=== PATIENT | female | born 1990 | race American Indian/Alaskan Native ===

== ENCOUNTER 2016-12-09 21:24 | Emergency (ER) | payer MEDICAID ==
[2016-12-09 23:01] LABS: Basophils % (Auto) 0.5 % (0.0-1.8); Eosinophils % (Auto) 0.5 % (0.0-4.3); Hematocrit 34.9 % (30.3-42.9); Hemoglobin 11.4 gm/dl (10.1-14.3); Mean Corpuscular HGB Conc 33 % (30-34); Mean Corpuscular Hemoglobin 29 pg (28-32); Mean Corpuscular Volume 89 fl (79-97); Platelet Count 238 K/mm3 (140-440); Red Blood Count 3.94 M/mm3 (3.65-5.03); Red Cell Distribution Width 15.7 % (13.2-15.2); White Blood Count 6.7 K/mm3 (4.5-11.0)
[2016-12-10 02:23] LABS: Bacteria,Urine 1+ /HPF (Negative); Bilirubin,Urine NEG (Negative); Blood,Urine NEG (Negative); Ketones,Urine 20 mg/dL (Negative); Leukocyte Esterase,Urine LG (Negative); Mucus,Urine 3+ /HPF; Nitrite,Urine NEG (Negative); Urobilinogen,Urine < 2.0 mg/dL (<2.0)
[2016-12-10] MEDS ORDERED: ZOFRAN ODT PO ONE (08:04)
[2016-12-10] MEDS ORDERED: NORCO 5/325 PO ONE (08:04)
--- NOTE | 2016-12-10 08:13 | Emergency Department Report ---
ED Female HPI - General Chief complaint: Vaginal Bleeding Stated complaint: VAG BLEED,PREG UNK WKS Time Seen by Provider: 12/10/16 07:59 Source: patient, RN notes reviewed Mode of arrival: Ambulatory Limitations: No Limitations - History of Present Illness Initial comments: 46-year-old female presents to the emergency department complaining of vaginal bleeding and lower abdominal pain. Patient states she began bleeding 4 days ago. She was seen in the emergency department at [facility]. She states that she was told she was and had an ultrasound. However, the patient did not get results of this ultrasound. She states that the bleeding improved over the next day, but the bleeding has returned. Patient reports intermittent vaginal bleeding. Sometimes the bleeding is heavy, sometimes it is manager r d. Patient describes sharp pain in her lower abdomen that does not radiate. She is also complaining of nausea and vomiting. There are no other complaints. MD Complaint: vaginal bleeding -: Gradual, days(s) (4) Location: suprapubic Radiation: non-radiating Severity: moderate Severity scale (0 -10): 6 Quality: sharp Consistency: intermittent Improves with: none Worsens with: none Are you Now?: Yes Associated Symptoms: nausea/vomiting - Related Data Sexually active: Yes : 2 Para: 2 Previous Rx's Medication Instructions Recorded Last Taken Type HYDROcodone/APAP 5-325 [[place] 1 each PO Q6HR PRN #14 tablet 12/10/16 Unknown Rx 5/325] Allergies Allergy/AdvReac Type Severity Reaction Status Date / Time No Known Allergies Allergy Verified 03/27/15 21:34 ED Review of Systems ROS: Stated complaint: VAG BLEED,PREG UNK WKS Other details as noted in HPI Comment: All other systems reviewed and negative Gastrointestinal: abdominal pain, nausea, vomiting Genitourinary: as per HPI, abnormal menses ED Past Medical Hx - Past Medical History Previous Medical History?: Yes Hx Hypertension: Yes (PIH) Hx Heart Attack/AMI: No Hx Congestive Heart Failure: No Hx Diabetes: No Hx Deep Vein Thrombosis: No Hx Pulmonary Embolism: No Hx Liver Disease: No Hx Renal Disease: No Hx Sickle Cell Disease: No Hx Arthritis: No Hx Seizures: No Hx Kidney Stones: No Hx Asthma: Yes (LAST ATTACK 1 WEEK AGO) Hx COPD: No Hx Dementia: No Hx HIV: No - Surgical History Past Surgical History?: Yes Hx Coronary Stent: No Hx Pacemaker: No Hx Internal Defibrillator: No Additional Surgical History: tonsilectomy - Family History Family history: no significant - Social History Smoking Status: Never Smoker Substance Use Type: None - Medications Home Medications: Home Medications Medication Instructions Recorded Confirmed Last Taken Type HYDROcodone/APAP 5-325 [[place] 1 each PO Q6HR PRN #14 tablet 12/10/16 Unknown Rx 5/325] ED Physical Exam - General Limitations: No Limitations General appearance: alert, in no apparent distress - Head Head exam: Present: atraumatic, normocephalic - Eye Eye exam: Present: normal appearance, PERRL, EOMI - ENT ENT exam: Present: normal exam, normal orophraynx, mucous membranes moist - Neck Neck exam: Present: normal inspection, full ROM. Absent: tenderness - Respiratory Respiratory exam: Present: normal lung sounds bilaterally. Absent: respiratory distress - Cardiovascular Cardiovascular Exam: Present: regular rate, normal rhythm, normal heart sounds - GI/Abdominal GI/Abdominal exam: Present: soft, tenderness (mild suprapubic tenderness to palpation), normal bowel sounds. Absent: distended, guarding, rebound - Extremities Exam Extremities exam: Present: normal inspection, full ROM. Absent: tenderness - Back Exam Back exam: Present: normal inspection, full ROM. Absent: tenderness - Neurological Exam Neurological exam: Present: alert, oriented X3. Absent: motor sensory deficit - Skin Skin exam: Present: warm, dry, intact ED Course Vital Signs 12/09/16 12/10/16 22:17 02:01 Temperature 98.4 F 97.6 F Pulse Rate 90 74 Respiratory 18 18 Rate Blood Pressure 122/75 124/81 O2 Sat by Pulse 100 100 Oximetry ED Medical Decision Making - Lab Data Result diagrams: 12/09/16 22:28 - Radiology Data Radiology results: report reviewed Pelvic ultrasound was discussed with the radiologist. Ultrasound reveals no evidence of . Ultrasound is read as normal. - Medical Decision Making Lab and imaging results reviewed and discussed with the patient. Patient reports feeling better with medication. Patient will be discharged home at this time to follow up with her PRIMER CHARGER. Patient will need repeat beta hCG testing within one week. - Differential Diagnosis ectopic , threatened , spontaneous Critical care attestation.: If time is entered above; I have spent that time in minutes in the direct care of this critically ill patient, excluding procedure time. ED Disposition Clinical Impression: Threatened miscarriage Disposition: DISCHARGED TO HOME OR SELFCARE Is pt being admited?: No Condition: Stable Instructions: Threatened Miscarriage (ED) Additional Instructions: Your beta hCG today was 44. Your ultrasound was read by the radiologist as normal. You need to follow up with your PRIMER CHARGER in the next week to have your blood work retested. If symptoms worsen, or if new symptoms develop, return to the emergency department. Prescriptions: HYDROcodone/APAP 5-325 [[place] 5/325] 1 each PO Q6HR PRN #14 tablet PRN Reason: Pain Referrals: PRIMARY CARE, [Primary Care Provider] - 3-5 Days Time of Disposition: 09:20
--- NOTE | 2016-12-10 09:08 | Ultrasound Report ---
ULTRASOUND OB LESS THAN 14 WEEKS - TRANSABDOMINAL AND TRANSVAGINAL INDICATION: Lower abdominal pain with moderate vaginal bleeding. Serum beta-hCG of 44.6 units. COMPARISON: None similar during this gestation. FINDINGS: Transabdominal and transvaginal pelvic sonography performed in this patient with LMP of 11/29/2016 and estimated menstrual age of 1 week and 4 days and EDC of 09/05/2017. An anteverted uterus measuring approximately 9 x 4.1 x 6 cm demonstrates endometrial thickness of approximately 0.9 cm towards the fundus, endovaginal image 8. Minimal pelvic free fluid. Right ovary is 3.6 x 2.4 x 2.5 cm while the left ovary is 2.7 x 1.6 x 2.2 cm. Small bilateral follicular cysts, largest approximately 1.6 cm on the right. CONCLUSION: 1. No sonographic evidence of a viable intrauterine gestation at this time, as described. 2. Both ovaries identified, as above. Please also correlate clinically for accuracy of the LMP and with followup serum beta-hCG values, as warranted. Thank you for the opportunity to participate in this patient's care.
[2016-12-10 09:35] VITALS: BP 120/81
== END 2016-12-10 09:30 | disposition home or self-care (01) ==
LOC: ED 21:24
DX: O20.0 Threatened abortion (principal); O16.9 Unspecified maternal hypertension, unspecified trimester; O99.519 Diseases of the respiratory system complicating pregnancy, unspecified trimester; Z3A.00 Weeks of gestation of pregnancy not specified; Z90.89 Acquired absence of other organs
CPT/HCPCS: 36415; 76801; 76817; 81001; 84702; 85025; 86850; 86900; 86901; Q0162

== ENCOUNTER 2017-07-15 13:50 | Observation (INO) | payer MEDICAID ==
[2017-07-15] MEDS ORDERED: LACTATED RINGERS 1,000 ML ONE ×2 (15:17→19:58)
[2017-07-15] MEDS ORDERED: PEPCID IV ONE (15:18)
[2017-07-15] MEDS ORDERED: SUBLIMAZE ONE (15:21)
[2017-07-15] MEDS ORDERED: DIPRIVAN 10 MG/ML IV ONE (15:21)
--- NOTE | 2017-07-15 15:26 | Anesthesia Consultation ---
Anesthesia Consult and Med Hx Date of service: 07/15/17 - Airway Anesthetic Teeth Evaluation: Good ROM Head & Neck: Adequate Mental/Hyoid Distance: Adequate Mallampati Class: Class II Intubation Access Assessment: Good - Pulmonary Exam CTA: Yes - Cardiac Exam Cardiac Exam: No Murmur - Pre-Operative Health Status ASA Pre-Surgery Classification: ASA1 Proposed Anesthetic Plan: General - Pulmonary Hx Smoking: No Hx Asthma: Yes COPD: No Hx Pneumonia: No Hx Sleep Apnea: No - Cardiovascular System Hx Hypertension: Yes (PIH) Hx Coronary Artery Disease: No Hx Heart Attack/AMI: No Hx Angina: No Hx Percutaneous Transluminal Coronary Angioplasty (PTCA): No Hx Pacemaker: No Hx Internal Defibrillator: No Hx Valvular Heart Disease: No Hx Heart Murmur: Yes Hx Peripheral Vascular Disease: No - Central Nervous System Hx Seizures: No CVA: No Hx Psychiatric Problems: No - Gastrointestinal Hx Ulcer: No Hx Gastroesophageal Reflux Disease: Yes - Endocrine Hx Renal Disease: No Hx End Stage Renal Disease: No Hx Cirrhosis: No Hx Liver Disease: No Hx Hypothyroidism: No Hx Hyperthyroidism: No - Hematic Hx Anemia: Yes Hx Sickle Cell Disease: No - Other Systems Hx Alcohol Use: No Hx Cancer: No
--- NOTE | 2017-07-15 15:27 | Anesthesia Day of Surgery ---
Anesthesia Day of Surgery - Day of Surgery Patient Examined: Yes Patient H&P Reviewed: Yes Patient is NPO: Yes
--- NOTE | 2017-07-15 15:28 | History and Physical Report ---
History of Present Illness Date of examination: 07/15/17 Date of admission: 07/15/17 Chief complaint: missed History of present illness: This is a 26 yo at 12 weeks came into to clinic for nob and noted to have bleeding. She had an US showing a missed . She was counseled and desired to have a d and c and declined alternative options which include meds vs conservative. 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 denies: smoking, alcohol abuse, prescription drug abuse, IV drug use - Obstetrical History : 1 Medications and Allergies Allergies Allergy/AdvReac Type Severity Reaction Status Date / Time No Known Allergies Allergy Verified 03/27/15 21:34 Home Medications Medication Instructions Recorded Confirmed Last Taken Type No Known Home Medications [No 07/15/17 07/15/17 Unknown History Reported Home Medications] Active Meds: Active Medications Famotidine (Pepcid) 20 mg IV PREOP NR Stop: 07/15/17 23:59 Lactated Ringer's (Lactated Ringers) 1,000 mls @ 100 mls/hr IV DIRECT FERNANDA Stop: 07/15/17 23:59 Midazolam HCl (Versed) 2 mg IV PREOP NR Stop: 07/15/17 23:59 Review of Systems Genitourinary: vaginal bleeding - Vital Signs Vital signs: Vital Signs Temp Pulse Resp BP Pulse Ox 98.3 F 89 18 117/56 100 07/15/17 15:00 07/15/17 15:00 07/15/17 15:00 07/15/17 15:00 07/15/17 15:00 Temp Pulse Resp BP Pulse Ox 98.3 F 89 18 117/56 100 07/15/17 15:00 07/15/17 15:00 07/15/17 15:00 07/15/17 15:00 07/15/17 15:00 - Physical Exam Breasts: Positive: normal Cardiovascular: Regular rate, Normal S1 Lungs: Positive: Clear to auscultation, Normal air movement Abdomen: Positive: normal appearance, soft, normal bowel sounds. Negative: distention, tenderness Genitourinary (Female): Positive: normal external genitalia, normal perenium Vulva: both: normal Vagina: Positive: normal moisture Cervix: Negative: lesion Uterus: Positive: normal size, normal contour Anus/Rectum: Positive: normal perianal skin Extremities: Positive: normal Deep Tendon Reflex Grade: Normal +2 Results All other labs normal. Assessment and Plan A/P missed 9 weeks IUP consent signed discused all options desires to proceed with d and c ivf and labs sent
[2017-07-15] MEDS ORDERED: PEPCID IV NR (15:30)
[2017-07-15] MEDS ORDERED: VERSED IV NR (15:30)
[2017-07-15] MEDS ORDERED: LACTATED RINGERS 1,000 ML IV SCH ×2 (15:30→19:00)
[2017-07-15] MEDS ORDERED: SILVER NITRATE TP ONE ×3 (15:36→16:09)
[2017-07-15] MEDS ORDERED: NACL 0.9% IR ONE (15:36)
[2017-07-15] MEDS ORDERED: XYLOCAINE MPF 2% ONE (15:42)
[2017-07-15 15:43] LABS: Basophils % (Auto) 0.4 % (0.0-1.8); Eosinophils % (Auto) 0.7 % (0.0-4.3); Hematocrit 36.7 % (30.3-42.9); Hemoglobin 11.9 gm/dl (10.1-14.3); Mean Corpuscular HGB Conc 33 % (30-34); Mean Corpuscular Hemoglobin 29 pg (28-32); Mean Corpuscular Volume 90 fl (79-97); Platelet Count 234 K/mm3 (140-440); Red Blood Count 4.07 M/mm3 (3.65-5.03); Red Cell Distribution Width 14.3 % (13.2-15.2); White Blood Count 5.9 K/mm3 (4.5-11.0)
[2017-07-15] MEDS ORDERED: DECADRON ONE (15:55)
[2017-07-15] MEDS ORDERED: ZOFRAN ONE (15:55)
[2017-07-15] MEDS ORDERED: NEO SYNEPHRINE/NS Syringe(OR USE) IV ONE (16:00)
--- NOTE | 2017-07-15 16:21 | Operative Report ---
Operative Report Operative Report: POSTOPERATIVE DIAGNOSIS: Missed . PROCEDURE PERFORMED: Suction, dilation, and curettage. ANESTHESIA: Spinal. ESTIMATED BLOOD LOSS: 300 mL. COMPLICATIONS: None. FINDINGS: Products of conception consistent with a 6-week intrauterine . INDICATIONS: The patient is a 26-year-old 3 , para 0112 female at 12 weeks by her last menstrual period and 9 weeks by an ultrasound today in the clinic who presents with heavy bleeding starting today. Additionally, the cervix was noted to be 1 cm dilated. These findings were discussed with the patient and options including surgical management via dilation and curettage versus management with misoprostol versus expected management were discussed with the patient. After discussion of these options, the patient opted for a suction, dilation, and curettage. The patient was described to the patient in detail including risks of infection, bleeding, injury to surrounding organs including risk of perforation. Informed consent was obtained prior to proceeding with the procedure. PROCEDURE NOTE: The patient was taken to the operating room where spinal anesthesia was administered without difficulty. The patient was prepped and draped in usual sterile fashion in lithotomy position. A weighted speculum was placed. The anterior lip of the cervix was grasped with a single tooth tenaculum. At this time, a 8-mm suction curettage was advanced into the uterine cavity without difficulty and was used to suction contents of the uterus. Following removal of the products of conception, a sharp curette was advanced into the uterine cavity and was used to scrape the four mays of the uterus until a gritty texture was noted. At this time, the suction curette was advanced one additional time to suction any remaining products. All instruments were removed. Hemostasis was visualized. The patient was stable
--- NOTE | 2017-07-15 16:23 | Discharge Summary ---
<MALIK SUAZO - Last Filed: 07/15/17 16:44> Providers - Providers Date of Admission: 07/15/17 Date of discharge: 07/15/17 Attending physician: MALIK SUAZO MD Primary care physician: HOIST OPERATOR Hospitalization Reason for admission: other (missed ) Procedure: other (dilatation and currettage) Condition at discharge: Stable Disposition: DC-01 TO HOME OR SELFCARE Plan - Discharge Medications Prescriptions: Ibuprofen [Motrin] 600 mg PO Q8H PRN #30 tablet PRN Reason: Pain oxyCODONE /ACETAMINOPHEN [Percocet 5/325] 1 tab PO Q6HR PRN #30 tablet PRN Reason: Pain - Provider Discharge Summary Activity: routine, no sex for 6 weeks, no strenuous exercise Diet: routine Instructions: routine Additional instructions: [] Smoking cessation referral if applicable(refer to patient education folder for contact #) [] Refer to [facility] Booklet Call your doctor immediately for: * Fever > 100.5 * Heavy vaginal bleeding ( >1 pad per hour) * Severe persistent headache * Shortness of breath * Reddened, hot, painful area to leg or breast * Drainage or odor from incision. * Keep incision clean and dry at all times and follow doctor's instructions regarding bathing/showering - Follow up plan Follow up: PRIMARY CARE, [Primary Care Provider] - 14 Days Forms: [facility] Discharge Summary, Outpatient Surgery DC Inst. <PHUCVIRGENN - Last Filed: 07/18/17 12:10> Providers - Providers Date of Admission: 07/15/17 18:19 Date of discharge: 07/16/17 Attending physician: MALIK SUAZO MD 07/15/17 18:18 Consult to Physician [CONS] Routine Consulting Provider: ALEXI SAUER Reason For Exam: seizure activity after surgery Place consult to:: Neurology Notified:: yes Phone number called:: [phone] Was contact made?: No If yes, spoke with:: service Time called:: 05:00 Comment:: dr. zheng notified Primary care physician: HOIST OPERATOR Hospitalization Procedure details: suction D&C complications: none Discharge diagnosis: other Hospital course: Pt was admitted for suction dilation and curettage after diagnosis of missed at 9 wks. She tolerated the procedure well, then showed evidence of seizure activity in the PACU. She was then admitted overnight for observation and had a Neurology consult with EEG. She was discharged on POD#1 on Motrin, Perocet and Keppra 500 mg BID. She will follow up in two weeks with Dr Suazo. - Discharge Diagnoses (1) Missed Status: Acute (2) Seizure Status: Acute Plan - Provider Discharge Summary Activity: routine, no sex for 6 weeks, no strenuous exercise Diet: routine Instructions: routine Additional instructions: [] Smoking cessation referral if applicable(refer to patient education folder for contact #) [] Refer to [facility] Booklet Call your doctor immediately for: * Fever > 100.5 * Heavy vaginal bleeding ( >1 pad per hour) * Severe persistent headache * Shortness of breath * Reddened, hot, painful area to leg or breast * Drainage or odor from incision. * Keep incision clean and dry at all times and follow doctor's instructions regarding bathing/showering
[2017-07-15] MEDS ORDERED: TORADOL IV PRN (16:37)
[2017-07-15] MEDS ORDERED: PERCOCET 5/325 PO PRN (16:37)
--- NOTE | 2017-07-15 17:06 | Post Anesthesia Evaluation ---
- Post Anesthesia Evaluation Patient Participated: Yes Airway Patent: Yes Stable Respiratory Function: Yes Nausea/Vomiting: No Temp > 96.8F: Yes Pain Manageable: Yes Adequeate Hydration: Yes Anesthesia Complications: No
[2017-07-15] MEDS ORDERED: VERSED IV ONE (17:27)
[2017-07-15] MEDS ORDERED: MYLICON PO PRN (18:18)
[2017-07-15] MEDS ORDERED: SENOKOT S PO PRN (18:18)
[2017-07-15] MEDS ORDERED: AMBIEN PO PRN (18:18)
[2017-07-15] MEDS ORDERED: TYLENOL PO PRN (18:18)
[2017-07-15] MEDS ORDERED: ZOFRAN IV PRN (18:18)
[2017-07-15] MEDS ORDERED: MILK OF MAGNESIA PO PRN (18:18)
[2017-07-15] MEDS ORDERED: ALUM-MAG HYDROX-SIMETH 200-200-20MG/5ML PO PRN (18:18)
[2017-07-15] MEDS ORDERED: BENADRYL PO PRN (18:18)
[2017-07-15] MEDS ORDERED: COLACE PO PRN (18:18)
[2017-07-15 19:52] LABS: Alanine Aminotransferase 13 units/L (7-56); Albumin 3.8 g/dL (3.9-5); Albumin/Globulin Ratio 1.5 %; Alkaline Phosphatase 45 units/L (35-129); Anion Gap 18 mmol/L; BUN/Creatinine Ratio 10; Blood Urea Nitrogen 7 mg/dL (7-17); Calcium 8.9 mg/dL (8.4-10.2); Carbon Dioxide 23 mmol/L (22-30); Chloride 101.4 mmol/L (98-107); Glucose 97 mg/dL (65-100); Potassium 4.9 mmol/L (3.6-5.0); Sodium 137 mmol/L (137-145); Total Protein 6.4 g/dL (6.3-8.2)
[2017-07-15 20:01] LABS: Bacteria,Urine 1+ /HPF (Negative); Bilirubin,Urine NEG (Negative); Blood,Urine LG (Negative); Ketones,Urine 20 mg/dL (Negative); Leukocyte Esterase,Urine LG (Negative); Nitrite,Urine NEG (Negative); Protein,Urine <15 mg/dL mg/dL (Negative); Urobilinogen,Urine < 2.0 mg/dL (<2.0)
[2017-07-15] MEDS: MOTRIN PO PRN (20:57)
[2017-07-15] MEDS: PERCOCET 5/325 PO PRN (20:58)
--- NOTE | 2017-07-15 23:35 | Consultation ---
History of Present Illness - Reason for Consult Consult date: 07/15/17 seizures - History of Present Illness patient is 26-year-old with history of asthma. Patient had missed and had D and C done today. While in the recovery room she had seizures. The hospitalist has been consulted for further evaluation. Patient stated this is her first time having seizures. She denies any chest pain or shortness of breath. She does mention positive family history of seizure disorder. Her mother has seizure disorder and also patient's 2-year-old son was just diagnosed with seizure disorder. Currently she is asymptomatic. Past History Past Medical History: other (asthma) Past Surgical History: Other (D and C) Social history: no significant social history, single. denies: smoking, alcohol abuse, prescription drug abuse, IV drug use Family history: other (Mother has seizure disorder) Medications and Allergies Allergies Allergy/AdvReac Type Severity Reaction Status Date / Time No Known Allergies Allergy Verified 03/27/15 21:34 Home Medications Medication Instructions Recorded Confirmed Last Taken Type Ibuprofen [Motrin] 600 mg PO Q8H PRN #30 tablet 07/15/17 Unknown Rx oxyCODONE /ACETAMINOPHEN [Percocet 1 tab PO Q6HR PRN #30 tablet 07/15/17 Unknown Rx 5/325] Active Meds: Active Medications Acetaminophen (Tylenol) 650 mg PO Q4H PRN PRN Reason: Pain MILD(1-3)/Fever >100.5/VIVAR Al Hydrox/Mg Hydrox/Simethicone (Alum-Mag Hydrox-Simeth [id number]/5ml) 30 ml PO Q6H PRN PRN Reason: Indigestion Diphenhydramine HCl (Benadryl) 25 mg PO Q6H PRN PRN Reason: Itching Docusate Sodium (Colace) 100 mg PO Q12H PRN PRN Reason: Constipation Lactated Ringer's (Lactated Ringers) 1,000 mls @ 125 mls/hr IV DIRECT FERNANDA Last Admin: 07/15/17 20:59 Dose: 125 mls/hr Ibuprofen (Motrin) 600 mg PO Q6H PRN PRN Reason: Pain, Mild (1-3) Last Admin: 07/15/17 20:57 Dose: 600 mg Magnesium Hydroxide (Milk Of Magnesia) 30 ml PO QHS PRN PRN Reason: Laxative Effect Ondansetron HCl (Zofran) 4 mg IV Q6H PRN PRN Reason: Nausea And Vomiting Oxycodone/Acetaminophen (Percocet 5/325) 1 tab PO ONCE PRN PRN Reason: Pain, Moderate (4-6) Oxycodone/Acetaminophen (Percocet 5/325) 2 tab PO Q4H PRN PRN Reason: Pain, Moderate (4-6) Last Admin: 07/15/17 20:58 Dose: 2 tab Senna/Docusate Sodium (Senokot S) 2 tab PO Q12H PRN PRN Reason: Laxative Effect Simethicone (Mylicon) 80 mg PO Q6H PRN PRN Reason: Gas pain Zolpidem Tartrate (Ambien) 10 mg PO ONCE PRN PRN Reason: Sleep Last Admin: 07/15/17 22:48 Dose: 10 mg Review of Systems All systems: negative (no fever, no headache, no chest pain, no shortness of breath. All other systems reviewed and are negative) Exam - Physical Exam Narrative exam: GEN APPEARANCE : Not in acute distress, lying in bed HEENT: Normocephalic, Atraumatic NECK : supple, no JVD LUNGS: clear to auscultation bilaterally, no rales, no wheeze HEART: S1 and S2 regular, no murmurs, rubs or gallop, ABD: Soft, non tender, non distended, normal bowel sounds EXT: No edema, no clubbing, no cyanosis NEURO: Awake,alert, oriented x 3,moves all extremities Psych:Normal mood - Constitutional Vitals: Temp Pulse Resp BP Pulse Ox 99.2 F 89 20 110/75 99 07/15/17 20:15 07/15/17 20:15 07/15/17 20:15 07/15/17 20:15 07/15/17 20:00 Results - Labs CBC & Chem 7: 07/15/17 14:40 07/15/17 19:26 Labs: Abnormal lab results 07/15/17 07/15/17 07/15/17 Range/Units 14:40 19:26 19:40 Lymph % (Auto) 40.7 H (13.4-35.0) % [place] % (Auto) 7.7 H (0.0-7.3) % Albumin 3.8 L (3.9-5) g/dL Urine WBC (Auto) 27.0 H (0.0-6.0) /HPF Assessment and Plan Seizures today in Recovery room after D and C done for missed . This is her first ever episode of seizure. Will start Keppra 500 mg by mouth twice a day. Consult neurology to evaluate. Obtain CT head. Implement seizure precautions.. Neuro checks every 6 hours. Asthma, stable Missed , s/p D and C today. Management per primary Ob/Gyne. Full CODE STATUS
[2017-07-15] MEDS ORDERED: KEPPRA PO SCH (23:45)
[2017-07-16 00:51] LABS: Magnesium 1.6 mg/dL (1.7-2.3); Phosphorous 3.1 mg/dL (2.5-4.5)
[2017-07-16] MEDS ORDERED: MAGNESIUM SULFATE 3 GM in NACL 0.9% 100 ML IV ONE (00:55)
--- NOTE | 2017-07-16 06:12 | Cat Scan Report ---
FINAL REPORT EXAM: CT HEAD/BRAIN WO CON HISTORY: seizures TECHNIQUE: Routine imaging was obtained of the brain without IV contrast. FINDINGS: There are no attenuation abnormalities. The ventricular system is appropriate in size and is symmetric. The basal cisterns appear normal. The visualized sinuses are clear. The mastoid air cells are well pneumatized. IMPRESSION: Within normal limits.
[2017-07-16] MEDS: MOTRIN PO PRN ×2 (06:40→14:10)
[2017-07-16] MEDS: PERCOCET 5/325 PO PRN ×2 (06:41→11:05)
--- NOTE | 2017-07-16 08:16 | History and Physical Report ---
History of Present Illness Date of examination: 07/16/17 Date of admission: 07/15/17 18:19 Chief complaint: NEUROLOGY CONSULTATION NOTE: CC: I am asked to see this 26 yo AA F for a seizure in the PACU yesterday following a suction D&C. HPI: Patient has enjoyed good health. Does have asthma and GERD. Yesterday in the PACU after an uneventful D&C she had a witnessed seizure with arm and body jerking lifting her off bed, was given IV Versed with no further events. Patient does not recall any of this. No tongue biting. Was found to be hypomagnesemic Mg++ 1.6 which is being replaced. Head CT normal (images reviewed). Feels fine now. Keppra 500 mg pBID begun. No prior hx of seizures. Patient's mother does have a seizure disorder since childhood and is now on both Keppra and Dilantin. Patients two year old twin son has just been diagnosed with seizures but has not started meds yet. The seizures occurred in conjunction with a T&A procedure. ROS: an 11 point ROS is negative. No hx recent LOC, focal neuro Sx or Sgns, no recent blunt head trauma. FH/SH no re-reviewed MEDS/ALLERGIES - see chart EXAM: HEENT - nl Neck - supple, no bruits Cor - no m, rubs ABd - soft, bs nl Extrem - no edema, no trauma NEURO EXAM: MS - fully alert, oriented x 3, speech fluent, clear and without errors. Follows all commands quickly and accurately. fund of knowledge nl CN 2 - 12 - nl. Full EOM without nystagmus. Pupils both 4 mm diam and reactive to bright light stim. Tongue nl and not bitten. MOT - nl strength all four extrem prox and dist SENS - nl except for decreased (cannot feel) touch over left saphenous nerve distribution (medial leg below knee extending half way up medial thigh on left) CEREB - fnf nl bilat DTRs - 2+ and symm prox and dist all four extrem, great toes down going bilat to plantar stim DX IMP: 1. Isolated seizure, possibly secondary to low Mg++. There is a positive fam hx Sz in her mother and one son age 2. 2. Left saphenous neuropathy. This will resolve over time. RECC: 1. Agree with Keppra for now 2. I will order stat EEG (suman is coming - need results now) 3. Recheck Mg++ level 4. No driving x one month. If EEG normal, would not continue the Keppra after one month if no Sz. 5. Go from there. Call as needed. Jamel Alvarez MD Past History Past Medical History: other (asthma) Past Surgical History: Other (D and C) Social history: no significant social history, single. denies: smoking, alcohol abuse, prescription drug abuse, IV drug use Family history: other (Mother has seizure disorder) Medications and Allergies Allergies Allergy/AdvReac Type Severity Reaction Status Date / Time No Known Allergies Allergy Verified 03/27/15 21:34 Home Medications Medication Instructions Recorded Confirmed Last Taken Type Ibuprofen [Motrin] 600 mg PO Q8H PRN #30 tablet 07/15/17 Unknown Rx oxyCODONE /ACETAMINOPHEN [Percocet 1 tab PO Q6HR PRN #30 tablet 07/15/17 Unknown Rx 5/325] Active Meds: Active Medications Acetaminophen (Tylenol) 650 mg PO Q4H PRN PRN Reason: Pain MILD(1-3)/Fever >100.5/VIVAR Al Hydrox/Mg Hydrox/Simethicone (Alum-Mag Hydrox-Simeth 014-010-07fm/5ml) 30 ml PO Q6H PRN PRN Reason: Indigestion Diphenhydramine HCl (Benadryl) 25 mg PO Q6H PRN PRN Reason: Itching Docusate Sodium (Colace) 100 mg PO Q12H PRN PRN Reason: Constipation Lactated Ringer's (Lactated Ringers) 1,000 mls @ 125 mls/hr IV DIRECT [facility] Last Admin: 07/15/17 20:59 Dose: 125 mls/hr Ibuprofen (Motrin) 600 mg PO Q6H PRN PRN Reason: Pain, Mild (1-3) Last Admin: 07/16/17 06:40 Dose: 600 mg Levetiracetam (Keppra) 500 mg PO BID [facility] Last Admin: 07/16/17 02:53 Dose: 500 mg Magnesium Hydroxide (Milk Of Magnesia) 30 ml PO QHS PRN PRN Reason: Laxative Effect Ondansetron HCl (Zofran) 4 mg IV Q6H PRN PRN Reason: Nausea And Vomiting Oxycodone/Acetaminophen (Percocet 5/325) 1 tab PO ONCE PRN PRN Reason: Pain, Moderate (4-6) Oxycodone/Acetaminophen (Percocet 5/325) 2 tab PO Q4H PRN PRN Reason: Pain, Moderate (4-6) Last Admin: 07/16/17 06:41 Dose: 2 tab Senna/Docusate Sodium (Senokot S) 2 tab PO Q12H PRN PRN Reason: Laxative Effect Simethicone (Mylicon) 80 mg PO Q6H PRN PRN Reason: Gas pain Zolpidem Tartrate (Ambien) 10 mg PO ONCE PRN PRN Reason: Sleep Last Admin: 07/15/17 22:48 Dose: 10 mg Physical Examination - Vital Signs Vital Signs: Vital Signs Temp Pulse Resp BP Pulse Ox 98.3 F 89 18 117/56 100 07/15/17 15:00 07/15/17 15:00 07/15/17 15:00 07/15/17 15:00 07/15/17 15:00 Results - Laboratory Findings CBC and BMP: 07/15/17 14:40 07/15/17 19:26 Abnormal Lab Findings: Abnormal Labs 07/15/17 07/15/17 07/15/17 14:40 19:26 19:40 Lymph % (Auto) 40.7 H [place] % (Auto) 7.7 H Magnesium Albumin 3.8 L Urine WBC (Auto) 27.0 H 07/16/17 00:12 Lymph % (Auto) [place] % (Auto) Magnesium 1.60 L Albumin Urine WBC (Auto)
--- NOTE | 2017-07-16 08:50 | Progress Note ---
Assessment and Plan A: POD#1 s/p suction D&C for missed at 9 wks Seizure in PACU after procedure s/p Neurology consult this morning P: Greatly appreciate Neurology consult. Per recommendations, EEG this AM. If normal, discharge home with follow up. Doing well postoperatively. Subjective - Subjective Date of service: 07/16/17 Principal diagnosis: Seizure, s/p D&C for missed Interval history: Pt alert and oriented this morning, no unusual complaints. Scant bleeding Patient reports: appetite normal, voiding normally, pain well controlled, ambulating normally Objective - Vital Signs Latest vital signs: Vital Signs Temp Pulse Resp BP BP Pulse Ox 07/16/17 04:20 98.3 F 85 20 96/55 07/16/17 00:00 99.1 F 113 H 20 105/59 07/15/17 20:15 99.2 F 89 20 110/75 110/75 07/15/17 20:00 98.6 F 79 19 120/78 99 07/15/17 19:00 98.5 F 98 H 20 134/81 98 07/15/17 18:20 99.0 F 95 H 16 120/79 98 07/15/17 17:41 16 07/15/17 17:40 90 16 124/81 100 07/15/17 17:30 83 16 119/75 100 07/15/17 17:25 82 14 121/75 100 07/15/17 17:17 98 F 80 14 126/76 100 07/15/17 16:55 84 16 115/68 100 07/15/17 16:50 96 H 16 124/72 100 07/15/17 16:40 94 H 18 113/65 100 07/15/17 16:35 99 H 18 121/72 100 07/15/17 16:30 97 H 18 118/64 100 07/15/17 16:25 99.4 F 95 H 18 124/69 100 07/15/17 15:15 98.3 F 89 18 117/56 100 07/15/17 15:00 98.3 F 89 18 117/56 100 Intake and Output 07/15/17 07/16/17 07/16/17 22:59 06:59 14:59 Intake Total 1100 480 Output Total 250 800 Balance 850 -320 Intake: IV 1100 Oral 480 Output: Urine 250 800 Void 800 Other: Total, Intake Amount 240 Total, Output Amount 800 Voiding Method Toilet Weight 54.431 kg - Exam Breasts: Present: deferred Cardiovascular: Present: Regular rate Lungs: Present: Clear to auscultation Abdomen: Present: soft Extremities: Present: normal - Labs Labs: Abnormal lab results 07/15/17 07/15/17 07/15/17 Range/Units 14:40 19:26 19:40 Lymph % (Auto) 40.7 H (13.4-35.0) % [place] % (Auto) 7.7 H (0.0-7.3) % Magnesium (1.7-2.3) mg/dL Albumin 3.8 L (3.9-5) g/dL Urine WBC (Auto) 27.0 H (0.0-6.0) /HPF 07/16/17 Range/Units 00:12 Lymph % (Auto) (13.4-35.0) % [place] % (Auto) (0.0-7.3) % Magnesium 1.60 L (1.7-2.3) mg/dL Albumin (3.9-5) g/dL Urine WBC (Auto) (0.0-6.0) /HPF
[2017-07-16 09:38] VITALS: BP 108/67
--- NOTE | 2017-07-16 10:42 | Progress Note ---
Subjective Date of service: 07/16/17 Principal diagnosis: Seizure, s/p D&C for missed Interval history: NEUROLOGY PROGRESS NOTE: EEG: The background rhythm consists of well regulated 10 - 12 Hz alpha activity. During drowsiness, voltages drop and frequencies slow. Stage II sleep is not attained. The patient was observed to have several jerks of one arm or another, one leg or another, both legs...all with no cortical equivalent. While there was normal alpha rhythm on the EEG, she "did not respond to commands" at that time. IMP: Normal awake and drowsy EEG. There is no focal, lateralizing, or epileptiform abnormaltiy. Elaborated behaviour as above. Neuro eval complete. See no neuro reason for keeping patient in hospital. Jamel Alvarez MD Objective - Vital Sign Vital Signs - 12hr 07/16/17 07/16/17 07/16/17 00:00 04:20 08:36 Temperature 99.1 F 98.3 F 98.4 F Pulse Rate 113 H 85 80 Respiratory 20 20 20 Rate Blood Pressure 105/59 96/55 108/67 [Left] - Laboratory Findings CBC and BMP: 07/15/17 14:40 07/15/17 19:26 Abnormal Lab Findings: Abnormal Labs 07/15/17 07/15/17 07/15/17 14:40 19:26 19:40 Lymph % (Auto) 40.7 H [place] % (Auto) 7.7 H Magnesium Albumin 3.8 L Urine WBC (Auto) 27.0 H 07/16/17 00:12 Lymph % (Auto) [place] % (Auto) Magnesium 1.60 L Albumin Urine WBC (Auto)
--- NOTE | 2017-07-16 14:22 | Progress Note ---
Assessment and Plan Seizure episode - had an episode in Recovery room after D and C done for missed . This is her first ever episode of seizure. Will cont Keppra 500 mg by mouth twice a day. Consulted neurology to evaluate. unremarkable CT head, EEG. Implement seizure precautions. appreciate neuro recommendation Asthma, stable Missed , s/p D and C yesday. Management per primary Ob/Gyne. Full CODE STATUS Patient appears to be stable. Plan for d/c by primary today Subjective Date of service: 07/16/17 Principal diagnosis: Seizure, s/p D&C for missed Interval history: No new complaints, discussed with neurology no sign of seizure on EEG Objective - Constitutional Vitals: Vital Signs - 12hr 07/16/17 07/16/17 07/16/17 04:20 08:36 11:05 Temperature 98.3 F 98.4 F Pulse Rate 85 80 Respiratory 20 20 20 Rate Blood Pressure 96/55 108/67 [Left] 07/16/17 12:00 Temperature 98.6 F Pulse Rate 76 Respiratory 20 Rate Blood Pressure [Left] General appearance: Present: no acute distress, well-nourished - EENT Eyes: PERRL, EOM intact ENT: hearing intact, clear oral mucosa Ears: bilateral: normal - Neck Neck: supple, normal ROM - Respiratory Respiratory effort: normal Respiratory: bilateral: CTA - Cardiovascular Rhythm: regular Heart Sounds: Present: S1 & S2. Absent: gallop, rub Extremities: pulses intact, No edema, normal color, Full ROM - Gastrointestinal General gastrointestinal: Present: soft, non-tender, non-distended, normal bowel sounds - Integumentary Integumentary: clear, warm, dry - Musculoskeletal Musculoskeletal: 1, strength equal bilaterally - Neurologic Neurologic: moves all extremities - Psychiatric Psychiatric: memory intact, appropriate mood/affect, intact judgment & insight - Labs CBC & Chem 7: 07/15/17 14:40 07/15/17 19:26 Labs: Abnormal lab results 07/15/17 07/15/17 07/15/17 Range/Units 14:40 19:26 19:40 Lymph % (Auto) 40.7 H (13.4-35.0) % [place] % (Auto) 7.7 H (0.0-7.3) % Magnesium (1.7-2.3) mg/dL Albumin 3.8 L (3.9-5) g/dL Urine WBC (Auto) 27.0 H (0.0-6.0) /HPF 07/16/17 Range/Units 00:12 Lymph % (Auto) (13.4-35.0) % [place] % (Auto) (0.0-7.3) % Magnesium 1.60 L (1.7-2.3) mg/dL Albumin (3.9-5) g/dL Urine WBC (Auto) (0.0-6.0) /HPF
== END 2017-07-16 15:00 | disposition home or self-care (01) ==
LOC: OR 13:50 → OB 18:19
PROVIDERS: ADMIT Obstetrics & Gynecology; ATTEND Obstetrics & Gynecology
DX: O02.1 Missed abortion (principal); O20.8 Other hemorrhage in early pregnancy; O99.351 Diseases of the nervous system complicating pregnancy, first trimester; R56.9 Unspecified convulsions; O99.511 Diseases of the respiratory system complicating pregnancy, first trimester; J45.909 Unspecified asthma, uncomplicated; O99.611 Diseases of the digestive system complicating pregnancy, first trimester; K21.9 Gastro-esophageal reflux disease without esophagitis; Z98.890 Other specified postprocedural states; Z3A.09 9 weeks gestation of pregnancy
CPT/HCPCS: 36415; 59820; 70450; 80053; 81001; 82550; 83735; 84100; 85025; 86850; 86900; 86901; 88305; 95819; 96365; 96366; 96375; G0378; J1100; J1885; J2250; J2370; J2405; J2590; J2704; J3010; J3475; J7120

== ENCOUNTER 2017-07-21 17:37 | Emergency (ER) | payer MEDICAID ==
--- NOTE | 2017-07-21 20:35 | Emergency Department Report ---
ED General Adult HPI - General Chief complaint: Weakness Stated complaint: SEIZURES. chest pain. sob Time Seen by Provider: 07/21/17 20:29 Source: patient Mode of arrival: Ambulatory Limitations: No Limitations - History of Present Illness Initial comments: Patient is a 26-year-old female that presents emergency room with uncontrolled seizures. Patient states that she has been having seizures since her D&C on 02/2017. She was placed on Keppra and sent home. She has not seen a neurologist yet or her primary care. Patient states he is drowsy. Patient states on the ride here from her how she had 2 seizures witnessed by her mother. Patient states now she is having chest pain and shortness of breath. Patient denies fever and chills. Patient states that her drowsiness is coming from side effect of the Keppra. Patient states her chest pain is a pressure in the center of her chest. Pain is at a 2 out of 10. Short of breath is worse with walking. Pain in chest and shortness of breath relieved by rest -: Sudden Location: chest Radiation: non-radiation Severity scale (0 -10): 2 Quality: aching Consistency: constant Improves with: rest Worsens with: movement Associated Symptoms: headaches, seizure, weakness Treatments Prior to Arrival: none - Related Data Previous Rx's Medication Instructions Recorded Last Taken Type Ibuprofen [Motrin] 600 mg PO Q8H PRN #30 tablet 07/15/17 Unknown Rx oxyCODONE /ACETAMINOPHEN [Percocet 1 tab PO Q6HR PRN #30 tablet 07/15/17 Unknown Rx 5/325] Allergies Allergy/AdvReac Type Severity Reaction Status Date / Time No Known Allergies Allergy Verified 07/21/17 17:40 ED Review of Systems ROS: Stated complaint: SEIZURES Other details as noted in HPI Comment: All other systems reviewed and negative Constitutional: weakness. denies: chills, fever Eyes: denies: eye pain, eye discharge, vision change ENT: denies: ear pain, throat pain Respiratory: shortness of breath. denies: cough, wheezing Cardiovascular: chest pain. denies: palpitations Endocrine: no symptoms reported Gastrointestinal: denies: abdominal pain, nausea, diarrhea Genitourinary: denies: urgency, dysuria, discharge Musculoskeletal: denies: back pain, joint swelling, arthralgia Skin: denies: rash, lesions Neurological: headache, weakness. denies: paresthesias Psychiatric: denies: anxiety, depression Hematological/Lymphatic: denies: easy bleeding, easy bruising ED Past Medical Hx - Past Medical History Hx Hypertension: Yes (PIH) Hx Heart Attack/AMI: No Hx Congestive Heart Failure: No Hx Diabetes: No Hx Deep Vein Thrombosis: No Hx Pulmonary Embolism: No Hx Liver Disease: No Hx Renal Disease: No Hx Sickle Cell Disease: No Hx Arthritis: No Hx Seizures: No Hx Kidney Stones: No Hx Asthma: Yes Hx COPD: No Hx Dementia: No Hx HIV: No - Surgical History Hx Coronary Stent: No Hx Pacemaker: No Hx Internal Defibrillator: No Additional Surgical History: tonsilectomy - Family History Family history: hypertension - Social History Smoking Status: Never Smoker Substance Use Type: None - Medications Home Medications: Home Medications Medication Instructions Recorded Confirmed Last Taken Type Ibuprofen [Motrin] 600 mg PO Q8H PRN #30 tablet 07/15/17 Unknown Rx oxyCODONE /ACETAMINOPHEN [Percocet 1 tab PO Q6HR PRN #30 tablet 07/15/17 Unknown Rx 5/325] ED Physical Exam - General Limitations: No Limitations General appearance: alert, in no apparent distress - Head Head exam: Present: atraumatic, normocephalic - Eye Eye exam: Present: normal appearance - ENT ENT exam: Present: mucous membranes moist - Neck Neck exam: Present: normal inspection - Respiratory Respiratory exam: Present: normal lung sounds bilaterally. Absent: respiratory distress - Cardiovascular Cardiovascular Exam: Present: regular rate, normal rhythm. Absent: systolic murmur, diastolic murmur, rubs, gallop - GI/Abdominal GI/Abdominal exam: Present: soft, normal bowel sounds - Extremities Exam Extremities exam: Present: normal inspection - Back Exam Back exam: Present: normal inspection - Neurological Exam Neurological exam: Present: alert, oriented X3 - Psychiatric Psychiatric exam: Present: normal affect, normal mood - Skin Skin exam: Present: warm, dry, intact, normal color. Absent: rash ED Course Vital Signs 07/21/17 07/21/17 07/21/17 17:40 19:00 19:09 Temperature 98.4 F Pulse Rate 80 66 Respiratory 18 18 18 Rate Blood Pressure 114/76 Blood Pressure 118/67 [Left] O2 Sat by Pulse 100 100 98 Oximetry 07/21/17 20:00 Temperature Pulse Rate 78 Respiratory 18 Rate Blood Pressure Blood Pressure 109/61 [Left] O2 Sat by Pulse 98 Oximetry ED Medical Decision Making - Radiology Data interpreted by me: Patient never had CT or labs done - Medical Decision Making After complete exam and discussion with plan, patient eloped without giving notice. And left prior to any treatment could be given Critical care attestation.: If time is entered above; I have spent that time in minutes in the direct care of this critically ill patient, excluding procedure time. ED Disposition Clinical Impression: Chest pain, Shortness of breath, Seizure, Weakness Disposition: Z-07 ELOPED Is pt being admited?: No Does the pt Need Aspirin: No Time of Disposition: 22:28
[2017-07-21 21:54] VITALS: BP 109/61
== END 2017-07-21 20:45 | disposition left against medical advice (07) ==
LOC: ED 17:37
DX: R07.9 Chest pain, unspecified (principal); R06.02 Shortness of breath; R53.1 Weakness
CPT/HCPCS: 99282